=== PATIENT | female | born 1965 | race Caucasian/White ===

== ENCOUNTER 2020-04-28 12:33 | Emergency (ER) | payer BC, SELFPAY ==
--- NOTE | ~2020-04-28 | CT_ITS ---
EXAMINATION: CT abdomen pelvis w con EXAM DATE: 04/28/2020 15:02 INDICATION: Abdominal pain, hematochezia. TECHNIQUE: Spiral CT of the abdomen and pelvis was performed following intravenous injection of 100 m L Omnipaque 350. Axial, coronal and sagittal images were reviewed. The dose-length product (DLP) fo r this examination was 305.40 mGy-cm. The exposure was tailored according to patient size (auto mA e xposure control), and iterative reconstruction (ASIR) was used as additional dose reduction technique . There is no prior study for comparison. FINDINGS: The liver, spleen, adrenal glands and pancreas are unremarkable. Gallbladder is unremarkab le. No biliary obstruction. Portal and splenic veins are patent. Kidneys enhance symmetrically. T here is no hydronephrosis. The uterus is unremarkable. Dilated left gonadal veins, possible pelvic congestion syndrome. The bladder is unremarkable. There is no retroperitoneal or pelvic lymphadenop athy. The appendix is normal. There is small sliding gastroesophageal hiatal hernia. There is expected am ount of colonic stool. No free intraperitoneal gas. The heart is normal in size. There are no pe ricardial or pleural effusions. Basilar lung scarring. Mild lumbar dextroscoliosis. There are no ost eoblastic or osteolytic lesions identified. IMPRESSION: 1. No acute intra-abdominal findings. 2. Dilated left gonadal veins, possible pelvic congestion syndrome. Reviewed, dictated and finalized at location A. [facility]
[2020-04-28 12:38] VITALS: BP 118/93; PULSE 114; RESP 14; TEMP 36.5; O2SAT 100
--- NOTE | 2020-04-28 13:12 | ED.GENADULT ---
HPI - General Adult General Chief complaint: GI Bleed Stated complaint: BLOOD IN STOOL, COVID + ON 04/06 Time Seen by Provider: 04/28/20 12:47 Source: patient History of Present Illness HPI narrative: Patient is a 55 y/o female complaining of rectal bleeding starting earlier today. She states that she had BM earlier today and notice large amount blood in toilet bowl. She had 2 more episodes of this. There is no alleviating or exacerbating factor. She called her PCP and was told to come to ED for evaluation. She also states that she has been having diarrhea for 10 days. She has some left lower abdominal pain radiating to back. Of note, she tested positive for COVID on 04/07 and she has recovered from her respiratory symptoms. Related Data Home Medications Medication Instructions Recorded Confirmed buspirone 10 mg PO BID 04/28/20 dextroamphetamine-amphetamine 30 mg PO BID 04/28/20 [Adderall] fluoxetine 40 mg PO DAILY 04/28/20 ibuprofen 800 mg PO Q6H 04/28/20 lamotrigine 50 mg PO DAILY 04/28/20 zolpidem 5 mg PO HS PRN 04/28/20 Allergies Allergy/AdvReac Type Severity Reaction Status Date / Time morphine Allergy Mild Vomiting Verified 04/28/20 13:36 Review of Systems Constitutional: Constitutional: Denies chills, Denies fever(s), Denies headache(s) and Denies weakness Eyes: Eyes: Denies blurry vision ENT: Denies headache(s) and Denies neck pain Cardiovascular: Cardiovascular: Denies chest pain and Denies dyspnea Respiratory: Respiratory: Denies cough and Denies dyspnea Gastrointestinal: Gastrointestinal: Reports abdominal pain, Reports hematochezia, Reports diarrhea, Denies nausea and Denies vomiting Genitourinary: Genitourinary: Denies hematuria and Denies dysuria Musculoskeletal: Musculoskeletal: Denies back pain and Denies neck pain Neurologic: Denies headache(s) and Denies weakness Exam Const: General: no acute distress and well developed Orientation/consciousness: oriented to person, oriented to place, oriented to time and patient oriented x3 HENMT: Head: normocephalic Ears: external ears normal General nose exam: Normal external nose present Eyes: General: appearance normal, both eyes and all related structures Conjunctivae: conjunctivae normal Neck: Neck: normal visual inspection and full ROM Chest: Chest palpation & inspection: normal inspection of the chest and no tenderness Resp: Effort & Inspection: normal respiratory effort Auscultation: clear to auscultation bilaterally Cardio: Rate: tachycardic Rhythm: regular rhythm GI: GI Palp: Yes abdominal tenderness (left lower abdomen) and Yes Soft to palpation Skin: General skin exam: normal color and turgor normal Neuro: General: oriented to person, oriented to place, oriented to time and patient oriented x3 Cognition (Neuro): normal cognition Extrem: General: normal to inspection, full ROM and no pedal edema Psych: Appearance: grossly normal Mental Status: mental status grossly normal Affect: normal affect Course Reevaluation(s) Reevaluation #1: Rechecked. Patient states that she has not had any more diarrhea or rectal since initial arrival in ED. Informed patient about labs including abnormal LFTs and CT findings and instructed patient to follow up with PCP and GI. Date: 04/28/20 Time: 17:50 Vital Signs Vital signs: Vital Signs Temperature 36.5 C 04/28/20 12:38 Pulse Rate 114 H 04/28/20 12:38 Respiratory Rate 14 04/28/20 12:38 Blood Pressure 118/93 H 04/28/20 12:38 Pulse Oximetry 100 04/28/20 12:38 Temperature 36.8 C 04/28/20 18:11 Pulse Rate 85 04/28/20 18:11 Respiratory Rate 16 04/28/20 18:11 Blood Pressure 125/85 04/28/20 18:11 Pulse Oximetry 99 04/28/20 18:11 Medical Decision Making Vital Signs Vital Signs: Vital Signs Temperature 36.5 C 04/28/20 12:38 Pulse Rate 114 H 04/28/20 12:38 Respiratory Rate 14 04/28/20 12:38 Blood Pressure 118/93 H 04/28/20 12:38 Pulse
[2020-04-28 13:49] VITALS: BP 126/90; BP 136/85; PULSE 100; PULSE 102
[2020-04-28 13:50] VITALS: BP 129/93; PULSE 113
[2020-04-28 13:52] VITALS: BP 129/93; PULSE 113
[2020-04-28] MEDS: fentaNYL CITRATE INJ (*CRX) 100 MCG/2 ML VIAL 50 MCG IV PUSH (13:55)
[2020-04-28 14:10] LABS: Basophils Absolute Auto 0.2 K/mm3 (0.0-0.1); Basophils Percent Auto 1.1 % (0.2-1.2); Eosinophils Absolute Auto 0.1 K/mm3 (0-0.3); Eosinophils Percent Auto 0.4 % (0-4.4); Hematocrit 37.2 % (37.0-47.0); Hemoglobin 12.5 g/dL (12.0-15.0); Immature Granulocyte Absolute 0.04 K/mm3 (0.00-0.031); Immature Granulocyte Percent A 0.3 % (0-0.5); Lymphocytes Absolute Auto 9.71 K/mm3 (0.9-3.2); Lymphocytes Percent Auto 71.2 % (18.3-44.2); Mean Corpuscular HGB Conc 33.6 g/dl (32-36); Mean Corpuscular Volume 83.2 fl (80-100); Mean Platelet Volume 8.5 fl (7.4-10.4); Monocytes Absolute Auto 0.8 K/mm3 (0.1-0.6); Monocytes Percent Auto 5.5 % (2.6-8.5); Neutrophils Absolute Auto 2.9 K/mm3 (1.3-6.7); Neutrophils Percent Auto 21.5 % (45.5-73.1); Nucleated Red Blood Cells Perc 0.2 % (0.0-0.2); Platelet Count Result 383 k/mm3 (150-375); Red Blood Count 4.47 M/mm3 (4.2-5.4); Red Cell Distribution Width 15.5 % (11.5-14.5); White Blood Count 13.6 K/mm3 (4.5-10.0)
[2020-04-28 14:19] LABS: INR 0.9; Prothrombin Time 13.2 Seconds (11.1-14.7)
[2020-04-28 14:20] LABS: Partial Thromboplastin Time 28.1 SECONDS (22.3-36.8)
[2020-04-28 14:21] LABS: Alanine Aminotransferase 249 U/L (4-35); Albumin Level 2.6 g/dL (3.5-5.1); Alkaline Phosphatase 552 U/L (38-126); Anion Gap 0 mmol/L (8-16); Aspartate Amino Transferase 117 U/L (14-36); Bilirubin,Total 0.4 mg/dL (0.2-1.3); Blood Urea Nitrogen 10 mg/dL (7-17); Calcium 7.8 mg/dL (8.4-10.2); Carbon Dioxide 30 mmol/L (22-30); Chloride 100 mmol/L (98-107); Estimated CRCL calculation 103 ml/min; Estimated Glomerular Filt Rate > 60; Glucose 108 mg/dL (65-105); Potassium 4.4 mmol/L (3.4-5.0); Sodium 130 mmol/L (137-145)
[2020-04-28 14:27] LABS: Atypical Lymphocytes Present; Platelet Estimate Adequate (Adequate)
[2020-04-28] MEDS: SODIUM CHLORIDE 0.9% IV 1,000 ML 999 ML IV CONT (16:09)
[2020-04-28 16:13] LABS: Add Urine Microscopic? NO; Appearance Urine Clear (Clear); Bilirubin Urine Negative (Negative); Blood Urine Negative (Negative); Color Urine Yellow (Yellow); Glucose Urine UA Negative (Negative); Ketones Urine Negative (Negative); Leukocyte Esterase Ur Negative LEU/UL (Negative); Nitrate Urine Negative (Negative); Protein Urine Negative (Negative); Urobilinogen Urine Negative mg/dL (<2.0)
[2020-04-28 16:21] LABS: Specific Grav Ur 1.053 (1.001-1.035)
[2020-04-28 17:34] LABS: Hematocrit 38.4 % (37.0-47.0); Hemoglobin 12.9 g/dL (12.0-15.0)
[2020-04-28 18:11] VITALS: BP 125/85; PULSE 85; RESP 16; TEMP 36.8; O2SAT 99
== END 2020-04-28 18:12 | disposition home or self-care (01) ==
PROVIDERS: Emergency Provider Emergency Medicine; PCP Family Medicine
DX: K62.5 Hemorrhage of anus and rectum (principal); R74.01 Elevation of levels of liver transaminase levels; Z86.16 Personal history of COVID-19
CPT/HCPCS: 36415; 74177; 80053; 81003; 85014; 85018; 85025; 85610; 85730; 86850; 86900; 86901; 96361; 96374; 99284; J3010; J7030; Q9967